=== PATIENT | female | born 1985 | race African-American/Black ===

== ENCOUNTER 2023-12-31 23:27 | Emergency (ER) | payer OTHER ==
[2024-01-01] MEDS ORDERED: Albuterol Sulf/Ipratropium 3 ML VIAL NEB ONE (00:20)
[2024-01-01] MEDS ORDERED: methylPREDNISolone sod succ 125 MG VIAL IM ONE (00:20)
[2024-01-01] MEDS ORDERED: PREDNISONE20 M1 PO (00:21)
[2024-01-01] MEDS ORDERED: ZITHROMAX250 MG PO (00:21)
== END 2024-01-01 00:50 | disposition home or self-care (01) ==
LOC: ED 23:27
DX: J06.9 Acute upper respiratory infection, unspecified (principal); J20.8 Acute bronchitis due to other specified organisms; Z88.8 Allergy status to other drugs, medicaments and biological substances

== ENCOUNTER 2024-04-28 02:53 | Inpatient (IN) | payer OTHER ==
[~2024-04-28] VITALS: Ht 170.2 cm; Wt 55.8 kg
[~2024-04-28 02:53] MED LIST: PREDNISONE20 M1 PO; ZITHROMAX250 MG PO
[2024-04-28 03:05] VITALS: BP 116/91
[2024-04-28] MEDS ORDERED: methylPREDNISolone sod succ 125 MG VIAL IV ONE (03:15)
[2024-04-28] MEDS ORDERED: Albuterol Sulf/Ipratropium 3 ML VIAL NEB ONE (03:15)
[2024-04-28] MEDS ORDERED: Albuterol Sulfate 2.5 MG/3 ML VIAL NEB ONE (03:15)
[2024-04-28 03:29] LABS: HEMATOCRIT 42.4 % (37.0-47.0); MEAN CORPUSCULAR HGB 29.9 pg (27.0-31.0); MEAN CORPUSCULAR HGB CONC 31.8 g/dl (33.0-37.0); MEAN PLATELET VOLUME 9.2 fl (9.6-12.3); PLATELET COUNT AUTOMATED 269 10*3/uL (130-400); RED BLOOD COUNT 4.51 10*6/uL (4.10-5.10); WHITE BLOOD COUNT 16.7 10*3/uL (4.8-10.8)
[2024-04-28 03:38] LABS: MANUAL DIFF REFLEX YES
[2024-04-28 03:49] LABS: BUN 9 mg/dl (9-23); CHLORIDE 106 mmol/L (98-107); POTASSIUM 3.7 mmol/L (3.4-5.1)
[2024-04-28 03:53] LABS: PLATELET SUFFICIENCY NORMAL (NORMAL); TOTAL CELLS COUNTED 100 #CELLS
[2024-04-28] MEDS ORDERED: Ceftriaxone Sodium 1 GM/10 ML SYR IV ONE (06:10)
[2024-04-28] MEDS ORDERED: SODIUM CHLORIDE 0.9% 1,000 ML IV SCH (06:10)
[2024-04-28] MEDS ORDERED: AZITHROMYCIN 250 ML IV ONE (06:10)
[2024-04-28] MEDS ORDERED: ACETAMINOPHEN 325 MG TAB PO PRN (07:25)
[2024-04-28] MEDS ORDERED: Ondansetron Hydrochloride 4 MG/2 ML VIAL IV PRN (07:25)
[2024-04-28] MEDS ORDERED: BISACODYL 10 MG SUPP R PRN (07:25)
[2024-04-28] MEDS ORDERED: Magnesium Hydroxide 30 ML UDC PO PRN (07:25)
[2024-04-28] MEDS ORDERED: Acetaminophen/Hydrocodone 5 MG/325 MG TABLET PO PRN (07:25)
[2024-04-28] MEDS ORDERED: ACETAMINOPHEN 650 MG SUPP R PRN (07:25)
[2024-04-28] MEDS ORDERED: BISACODYL 5 MG TAB PO PRN (07:25)
[2024-04-28 07:29] VITALS: BP 113/78
[2024-04-28] MEDS ORDERED: Albuterol Sulf/Ipratropium 3 ML VIAL NEB SCH (08:05)
[2024-04-28] MEDS ORDERED: MAGNESIUM SULFATE 50 ML IV ONE (08:15)
[2024-04-28] MEDS ORDERED: Enoxaparin Sodium 40 MG/0.4 ML SYR SC SCH (10:00)
[2024-04-28] MEDS ORDERED: methylPREDNISolone sod succ 40 MG VIAL IV SCH (10:00)
[2024-04-28 11:15] VITALS: BP 118/72
[2024-04-28 14:32] VITALS: BP 113/72
[2024-04-28 20:00] VITALS: BP 118/72
[2024-04-29] VITALS: BP 124/76
[2024-04-29 04:00] VITALS: BP 118/68
[2024-04-29] MEDS ORDERED: AZITHROMYCIN 250 ML IV SCH (06:00)
[2024-04-29 07:16] LABS: HEMATOCRIT 37.8 % (37.0-47.0); MEAN CORPUSCULAR HGB 30.9 pg (27.0-31.0); MEAN CORPUSCULAR HGB CONC 34.1 g/dl (33.0-37.0); MEAN PLATELET VOLUME 9.4 fl (9.6-12.3); PLATELET COUNT AUTOMATED 266 10*3/uL (130-400); RED BLOOD COUNT 4.17 10*6/uL (4.10-5.10); RED CELL DISTRI WIDTH 13.6 % (0-14.5); WHITE BLOOD COUNT 21.7 10*3/uL (4.8-10.8)
[2024-04-29 07:26] LABS: MEAN CELL VOLUME 90.6 fl (81.0-99.0)
[2024-04-29 07:27] LABS: MANUAL DIFF REFLEX YES
[2024-04-29 07:41] LABS: ALKALINE PHOSPHATASE 57 U/L (46-116); BUN 8 mg/dl (9-23); CHLORIDE 110 mmol/L (98-107); CHOLESTEROL 141 mg/dL (<200); LDL CHOLESTEROL 47 mg/dL (9-159); POTASSIUM 4.1 mmol/L (3.4-5.1); SGPT/ALT 9 U/L (5-49); TOTAL PROTEIN 6.7 gm/dL (6.0-8.0); TRIGLYCERIDES 53 mg/dl (<150)
[2024-04-29 07:55] LABS: PLATELET SUFFICIENCY NORMAL (NORMAL); TOTAL CELLS COUNTED 100 #CELLS
[2024-04-29 09:24] LABS: VITAMIN D, 25-HYDROXY 20.8 ng/mL (30-100)
[2024-04-29] MEDS ORDERED: Ceftriaxone Sodium 1 GM,IV 1 EA in SYRINGE INFUSION 10 ML IV SCH (10:00)
[2024-04-29] MEDS ORDERED: Ceftriaxone Sodium 10 ML IV SCH (10:00)
[2024-04-29 14:15] VITALS: BP 113/73
[2024-04-29] MEDS ORDERED: Levalbuterol Hydrochloride 1.25 MG VIAL NEB PRN (14:15)
[2024-04-29 16:00] VITALS: BP 111/75
[2024-04-29 20:00] VITALS: BP 132/86
[2024-04-30 07:03] LABS: BUN 16 mg/dl (9-23); CHLORIDE 107 mmol/L (98-107)
[2024-04-30 07:07] LABS: BASO % 0.1 % (0.0-1.0); HEMATOCRIT 40.7 % (37.0-47.0); LYMPH # 1.4 10*3/uL (1.3-4.4); LYMPH % 7.5 % (27.0-41.0); MEAN CELL VOLUME 92.5 fl (81.0-99.0); MEAN CORPUSCULAR HGB 30.2 pg (27.0-31.0); MEAN CORPUSCULAR HGB CONC 32.7 g/dl (33.0-37.0); MEAN PLATELET VOLUME 9.6 fl (9.6-12.3); MONO # 0.8 10*3/uL (0.1-1.0); NEUT # 16.8 10*3/uL (2.3-7.9); NEUT % 87.6 % (47.0-73.0); PLATELET COUNT AUTOMATED 315 10*3/uL (130-400); RED CELL DISTRI WIDTH 13.6 % (0-14.5); WHITE BLOOD COUNT 19.1 10*3/uL (4.8-10.8)
[2024-04-30 08:00] VITALS: BP 108/76
[2024-04-30] MEDS ORDERED: Levalbuterol Hydrochloride 1.25 MG VIAL NEB SCH (09:19)
[2024-04-30] MEDS ORDERED: ZITHROMAX250 MG PO (09:56)
[2024-04-30] MEDS ORDERED: SYMB80 INH (09:56)
[2024-04-30] MEDS ORDERED: VITAMIN D350 MC2 PO (09:56)
[2024-04-30] MEDS ORDERED: NEBULIZER (09:56)
[2024-04-30] MEDS ORDERED: PREDNISONE10 MG PO (09:56)
[2024-04-30] MEDS ORDERED: VENT7GM INH (09:56)
[2024-04-30] MEDS ORDERED: VENTOLIN 02.5 MG/3 M INH (09:56)
[2024-04-30] MEDS ORDERED: OMNICEF300 MG PO (09:56)
[2024-04-30] MEDS ORDERED: Vitamin D 1,000 IU TAB (25 MCG) PO SCH (10:00)
[2024-04-30] MEDS ORDERED: ASCORBIC ACID 500 MG TAB PO SCH (10:00)
[2024-04-30 12:00] VITALS: BP 113/75
[2024-04-30] MEDS ORDERED: MEDROL8 MG PO (12:26)
== END 2024-04-30 12:38 | disposition home or self-care (01) | DRG 871 ==
LOC: ED 02:53 → EDHOLD 06:12 → 4E 06:12
PROVIDERS: Emergency Medicine; Student in an Organized Health Care Education/Training Program; ADMIT Internal Medicine; ATTEND Internal Medicine
DX: A41.9 Sepsis, unspecified organism (principal); J12.9 Viral pneumonia, unspecified; J96.01 Acute respiratory failure with hypoxia; J45.41 Moderate persistent asthma with (acute) exacerbation; R65.20 Severe sepsis without septic shock; R73.9 Hyperglycemia, unspecified; Z20.822 Contact with and (suspected) exposure to COVID-19; Z83.3 Family history of diabetes mellitus; Z83.49 Family history of other endocrine, nutritional and metabolic diseases